=== PATIENT | female | born 1965 | race Caucasian/White ===

== ENCOUNTER 2017-05-24 21:50 | Emergency (ER) | payer OTHER ==
[~2017-05-24] VITALS: Ht 170.2 cm; Wt 114.5 kg
[2017-05-24] MEDS ORDERED: SITA50TAB PO (22:01)
[2017-05-24] MEDS ORDERED: METF10004 PO (22:01)
[2017-05-24] MEDS ORDERED: ROBA500T PO (23:58)
[2017-05-25 00:46] VITALS: BP 146/94
== END 2017-05-25 00:47 | disposition home or self-care (01) ==
LOC: M ED 21:50
DX: M62.830 Muscle spasm of back (principal); E11.9 Type 2 diabetes mellitus without complications; Z87.891 Personal history of nicotine dependence; Z79.84 Long term (current) use of oral hypoglycemic drugs
CPT/HCPCS: 96372; 99282; J3360

== ENCOUNTER 2017-06-16 07:47 | Emergency (ER) | payer OTHER ==
[~2017-06-16] VITALS: Ht 170.2 cm; Wt 107.7 kg
[~2017-06-16 07:47] MED LIST: METF10004 PO; ROBA500T PO; SITA50TAB PO
[2017-06-16] MEDS ORDERED: NS 1,000 ML IV ONE ×2 (08:15→09:15)
[2017-06-16] MEDS ORDERED: MORPHINE 2 MG/ML 1ML SYRINGE IV PRN (08:15)
[2017-06-16] MEDS ORDERED: ONDANSETRON 4MG/2ML VIAL (J2405) IV ONE (08:15)
[2017-06-16] MEDS ORDERED: STOO100C PO (08:37)
[2017-06-16] MEDS ORDERED: ZOFR4TAB3 PO (08:37)
[2017-06-16] MEDS ORDERED: OMEP40CA2 PO (08:37)
[2017-06-16] MEDS ORDERED: OXYC15TA76 PO (08:37)
--- NOTE | 2017-06-16 08:38 | REP ---
Chest one-view HISTORY: Chest pain Comparison: None The lungs are clear. The heart is normal in size. The pulmonary vasculature is normal in appearance. Impression: No acute disease. Signed by Virgil Stanton MD 06/16/2017 08:31 A
[2017-06-16 08:44] LABS: INR 1.02
[2017-06-16 09:03] LABS: ALBUMIN 2.5 GM/DL (3.2-5.2); ALBUMIN/GLOBULIN RATIO 0.48 (1.00-1.93); ALKALINE PHOSPHATASE 78 U/L (45-117); ALT/SGPT 13 U/L (12-78); AMYLASE 7 U/L (25-115); ANION GAP 10 MEQ/L (8-16); AST/SGOT 5 U/L (15-37); BASO # 0.1 K/mm3 (0.0-0.2); BASO % 0.4 % (0.0-1.0); BILIRUBIN,DIRECT 0.3 MG/DL (0.0-0.2); BILIRUBIN,TOTAL 0.9 MG/DL (0.2-1.0); BLOOD UREA NITROGEN 11 MG/DL (7-18); CALCIUM LEVEL 9.5 MG/DL (8.5-10.1); CARBON DIOXIDE LEVEL 26 MEQ/L (21-32); CHLORIDE LEVEL 103 MEQ/L (98-107); CREATININE FOR GFR 0.79 MG/DL (0.55-1.02); EOS # 0.2 K/mm3 (0.0-0.50); EOS % 0.5 % (0.0-3.0); GLOMERULAR FILTRATION RATE > 60.0 (>51); GLUCOSE, FASTING 186 MG/DL (70-105); LARGE UNSTAINED CELL # 0.2 K/mm3 (0.0-0.4); LARGE UNSTAINED CELL % 0.6 % (0.0-4.0); LYMPH # 1.5 K/mm3 (1.5-4.5); LYMPH % 3.8 % (24.0-44.0); MEAN CORPUSCULAR HEMOGLOBIN 30.4 pg (27.0-33.0); MEAN CORPUSCULAR HGB CONC 32.7 g/dl (32.0-36.5); MEAN CORPUSCULAR VOLUME 92.9 fl (80.0-96.0); MONO # 1.7 K/mm3 (0.0-0.8); NEUTROPHILS # 30.7 K/mm3 (1.8-7.7); NEUTROPHILS % 89.7 % (36.0-66.0); PLATELET COUNT, AUTOMATED 383 k/mm3 (150-450); POTASSIUM SERUM 3.4 MEQ/L (3.5-5.1); RED CELL DISTRIBUTION WIDTH 13.4 % (11.5-14.5); SODIUM LEVEL 139 MEQ/L (136-145); TOTAL PROTEIN 7.7 GM/DL (6.4-8.2)
[2017-06-16 09:14] LABS: WHITE BLOOD COUNT 34.2 K/mm3 (4.0-10.0)
[2017-06-16] MEDS ORDERED: PIPERACILLIN/TAZOBACTAM SOD 4.5 GM in D5W MINI-BAG PLUS 50 ML IV ONE (09:15)
[2017-06-16] MEDS ORDERED: ISOVUE-370 76% 100ML VIAL (Q9967) As Ordered ONE (09:17)
--- NOTE | 2017-06-16 10:46 | REP ---
CT ABDOMEN AND PELVIS WITH IV CONTRAST: TECHNIQUE: Axial contrast enhanced images from the lung bases to the pubic symphysis using 100 mL Isovue 370 intravenous contrast material with multiplanar reformations. In the visualized lung bases, there is a small left pleural effusion. There is bibasilar atelectasis/infiltrate left greater than right. Liver demonstrates focal fatty infiltration along the fissure for the ligamentum teres. Gallbladder is grossly unremarkable. Spleen is unremarkable. Adrenal glands demonstrate nodules bilaterally, measuring 3.2 cm on the right and 2.5 cm on the left. Pancreas and kidneys appear unremarkable. There is no adenopathy. The patient has had prior gastric surgery in late May. There is thickening of the anterior abdominal musculature with surrounding streaky inflammatory change in the left upper quadrant. Findings suggest cellulitis in this region. There is underlying mild free intraperitoneal air and diffuse inflammatory change of the mesentery of the left upper quadrant. No abscess collection is seen. No significant free fluid is seen. I see no bowel wall thickening. Multiple surgical sutures are seen in the region of the stomach. No pelvic mass is seen. There are small bilateral inguinal hernias containing fat. IMPRESSION: Small left pleural effusion with bibasilar atelectasis/infiltrate left greater than right. No abscess is seen. However, there is diffuse thickening of the left upper quadrant abdominal wall musculature with surrounding streaky inflammatory change suggesting cellulitis. In addition, there are streaky inflammatory changes in the mesentery of the left upper quadrant with a small amount of free intraperitoneal air. Findings were discussed with Dr. Shore at the time of the exam 9:45 a.m. on 06/16/2017. Bilateral adrenal nodules are present. Recommend followup MRI to further evaluate. Signed by Yrn Florence MD 06/16/2017 05:06 P
[2017-06-16 10:52] VITALS: BP 103/62
--- NOTE | 2017-06-16 19:48 | ECGEPIP ---
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
== END 2017-06-16 10:55 | disposition short-term general hospital (02) ==
LOC: M ED 07:47
DX: R10.9 Unspecified abdominal pain (principal); K66.8 Other specified disorders of peritoneum; D72.829 Elevated white blood cell count, unspecified; R65.10 Systemic inflammatory response syndrome (SIRS) of non-infectious origin without acute organ dysfunction; E11.9 Type 2 diabetes mellitus without complications; F17.200 Nicotine dependence, unspecified, uncomplicated; R00.0 Tachycardia, unspecified; R94.31 Abnormal electrocardiogram [ECG] [EKG]; Z79.899 Other long term (current) drug therapy
CPT/HCPCS: 71010; 74177; 80048; 80076; 82150; 82550; 82553; 83605; 83690; 85025; 85610; 85730; 86850; 86900; 86901; 87040; 93000; 93041; 94760; 96361; 96365; 96375; 99285; J2405; J2543; Q9967

== ENCOUNTER 2017-10-03 09:19 | Emergency (ER) | payer OTHER ==
[~2017-10-03] VITALS: Ht 170.2 cm; Wt 93.6 kg
[~2017-10-03 09:19] MED LIST changes: +OMEP40CA2 PO; +OXYC15TA76 PO; +STOO100C PO; +ZOFR4TAB3 PO
[2017-10-03] MEDS ORDERED: AMOX500C (09:27)
[2017-10-03] MEDS ORDERED: ONDANSETRON 4MG/2ML VIAL (J2405) IV ONE (09:45)
[2017-10-03] MEDS ORDERED: MECLIZINE 25 MG TABLET PO ONE (09:45)
[2017-10-03] MEDS ORDERED: NS 1,000 ML IV ONE (09:45)
[2017-10-03 10:13] LABS: BASO # 0.1 10^3/uL (0.0-0.2); BASO % 0.5 % (0.0-1.0); EOS # 0.1 10^3/uL (0.0-0.50); EOS % 0.5 % (0.0-3.0); IMMATURE GRANULOCYTE % 0.6 % (0-0); LYMPH # 1.5 10^3/uL (1.5-4.5); LYMPH % 9.8 % (24.0-44.0); MEAN CORPUSCULAR HEMOGLOBIN 29.8 pg (27.0-33.0); MEAN CORPUSCULAR HGB CONC 33.8 g/dl (32.0-36.5); MEAN CORPUSCULAR VOLUME 88.4 fl (80.0-96.0); MONO # 0.9 10^3/uL (0.0-0.8); NEUTROPHILS # 12.5 10^3/uL (1.8-7.7); NEUTROPHILS % 82.6 % (36.0-66.0); PLATELET COUNT, AUTOMATED 269 10^3/uL (150-450); RED CELL DISTRIBUTION WIDTH 13.2 % (11.5-14.5); WHITE BLOOD COUNT 15.1 10^3/uL (4.0-10.0)
[2017-10-03 10:33] LABS: ANION GAP 8 MEQ/L (8-16); BLOOD UREA NITROGEN 6 MG/DL (7-18); CALCIUM LEVEL 9.1 MG/DL (8.5-10.1); CARBON DIOXIDE LEVEL 24 MEQ/L (21-32); CHLORIDE LEVEL 105 MEQ/L (98-107); CREATININE FOR GFR 0.61 MG/DL (0.55-1.02); GLOMERULAR FILTRATION RATE > 60.0 (>51); GLUCOSE, FASTING 170 MG/DL (70-105); SODIUM LEVEL 137 MEQ/L (136-145)
--- NOTE | 2017-10-03 12:10 | REP ---
Clinical: Left axillary pain and swelling with erythema. Technique: Real time patel scale and color evaluation using curved array transducer. Findings: Directed ultrasound examination of the left axillary region demonstrates a 5.1 x 3.6 x 3.6 cm complex fluid collection compatible with hematoma versus abscess versus seroma. Correlation with history is recommended. Impression: Complex collection in the axilla compatible with abscess versus hematoma and less likely seroma. Signed by Edson Denson MD 10/03/2017 12:01 P
[2017-10-03] MEDS ORDERED: LIDOCAINE 1% MDV 20ML VIAL SC ONE (12:15)
[2017-10-03] MEDS ORDERED: MECL-68 PO (13:03)
[2017-10-03] MEDS ORDERED: ZOFR4TAB3 PO (13:03)
[2017-10-03] MEDS ORDERED: BACT800T5 PO (13:03)
[2017-10-03 13:15] VITALS: BP 120/70
== END 2017-10-03 13:24 | disposition home or self-care (01) ==
LOC: M ED 09:19
DX: H81.10 Benign paroxysmal vertigo, unspecified ear (principal); L02.412 Cutaneous abscess of left axilla; Z72.0 Tobacco use
CPT/HCPCS: 10060; 36415; 76882; 80048; 85025; 87070; 87076; 87205; 96374; 99284; J2405

== ENCOUNTER 2019-05-01 14:08 | Emergency (ER) | payer OTHER ==
[~2019-05-01] VITALS: Ht 170.2 cm; Wt 109.7 kg
[~2019-05-01 14:08] MED LIST changes: +AMOX500C; +BACT800T5 PO; +MECL1TAB31 PO; +MM S100C PO; -OMEP40CA2 PO; +OMEP40CA97 PO; -STOO100C PO; +ZOFR4TAB14 PO; -ZOFR4TAB3 PO
[2019-05-01 14:50] LABS: BASO # 0.1 10^3/uL (0.0-0.2); BASO % 0.9 % (0.0-1.0); EOS # 0.2 10^3/uL (0.0-0.50); EOS % 1.9 % (0.0-3.0); HEMATOCRIT 47.3 % (36.0-47.0); HEMOGLOBIN 15.4 g/dl (12.0-15.5); LYMPH % 21.8 % (24.0-44.0); MEAN CORPUSCULAR HEMOGLOBIN 31.4 pg (27.0-33.0); MEAN CORPUSCULAR HGB CONC 32.6 g/dl (32.0-36.5); MEAN CORPUSCULAR VOLUME 96.3 fl (80.0-96.0); MONO # 0.6 10^3/uL (0.0-0.8); MONO % 6.6 % (0.0-5.0); NEUTROPHILS # 6.3 10^3/uL (1.8-7.7); NEUTROPHILS % 68.3 % (36.0-66.0); PLATELET COUNT, AUTOMATED 216 10^3/uL (150-450); RED BLOOD COUNT 4.91 10^6/uL (4.00-5.40); WHITE BLOOD COUNT 9.3 10^3/uL (4.0-10.0)
[2019-05-01 15:05] LABS: INR 0.89; PROTHROMBIN TIME 11.7 SECONDS (11.8-14.0)
[2019-05-01 15:06] LABS: PARTIAL THROMBOPLASTIN TIME 25.5 SECONDS (25.0-38.4)
[2019-05-01] MEDS: NITROGLYCERIN 0.4 MG SUBL TABLET SL PRN ×3 (15:07→15:30)
[2019-05-01] MEDS ORDERED: HEPARIN DRIP 25,000 UNITS in IV 1 EA IV SCH (15:08)
[2019-05-01] MEDS ORDERED: CLOPIDOGREL 300 MG TAB (PLAVIX) PO ONE (15:15)
[2019-05-01] MEDS ORDERED: HEPARIN SOD (PORCINE) 5000 UNITS/ML VIAL IV ONE (15:15)
[2019-05-01 15:20] LABS: ALBUMIN 3.5 GM/DL (3.2-5.2); ALT/SGPT 17 U/L (12-78); BILIRUBIN,DIRECT 0.1 MG/DL (0.0-0.2); BILIRUBIN,TOTAL 0.4 MG/DL (0.2-1.0); BLOOD UREA NITROGEN 9 MG/DL (7-18); CALCIUM LEVEL 8.8 MG/DL (8.5-10.1); CARBON DIOXIDE LEVEL 23 MEQ/L (21-32); CHLORIDE LEVEL 110 MEQ/L (98-107); CK-MB VALUE MASS 3.1 NG/ML (<3.6); CPK CREATINE PHOSPHOKINASE 108 U/L (26-192); FREE T4 0.98 NG/DL (0.76-1.46); GLOMERULAR FILTRATION RATE > 60.0 (>51); GLUCOSE, FASTING 121 MG/DL (70-100); LIPASE 113 U/L (73-393); MB/CK RELATIVE INDEX 2.87 (< OR =4); POTASSIUM SERUM 4.2 MEQ/L (3.5-5.1); SODIUM LEVEL 141 MEQ/L (136-145); TOTAL PROTEIN 7.2 GM/DL (6.4-8.2)
[2019-05-01 15:30] VITALS: BP 124/60
--- NOTE | 2019-05-01 15:35 | REP ---
Clinical: Acute chest pain . Comparison: 06/16/2017 Findings: The mediastinum and cardiac silhouette are stable and within normal limits for portable technique. The lung brown are clear without acute consolidation, effusion, or pneumothorax. Skeletal structures are intact. Impression: No acute cardiopulmonary process appreciated. Electronically Signed by Edson Denson MD 05/01/2019 03:26 P
[2019-05-01 15:42] VITALS: BP 118/65
--- NOTE | 2019-05-01 21:44 | ECGEPIP ---
[facility] - ED Test Date: 2019-05-01 Pat Name: TYLER PRITCHETT Department: Room: - Gender: Female Park Superintendent: BURT : 1965 Requested By: ROSINA Rizvi Order Number: [id number] Reading MD: Patricia Griffin Measurements Intervals [place] Rate: 87 P: 48 WI: 164 QRS: 76 QRSD: 132 T: QT: 381 QTc: 460 Interpretive Statements SINUS RHYTHM WITH OCCASIONAL VENTRICULAR PREMATURE COMPLEXES INTRAVENTRICULAR CONDUCTION DELAY Anteroseptal infarct acute, CLINICAL CORRELATION Electronically Signed on 05-01-2019 21:44:21 EDT by Patricia Griffin
[2019-06-27] MEDS ORDERED: RAMI1CAP22 PO (12:50)
[2019-06-27] MEDS ORDERED: POTA1TAB14 PO (12:50)
[2019-06-27] MEDS ORDERED: METO25TA4 PO (12:50)
[2019-06-27] MEDS ORDERED: ASPI81CH33 PO (12:50)
[2019-06-27] MEDS ORDERED: ATOR40TA75 PO (12:50)
[2019-06-27] MEDS ORDERED: NICO21DI6 TD (12:50)
[2019-06-27] MEDS ORDERED: FURO40TA2 PO (12:50)
[2019-06-27] MEDS ORDERED: JANT5TAB PO (12:50)
[2019-06-27] MEDS ORDERED: JANT4TAB PO (12:50)
== END 2019-05-01 16:01 | disposition home or self-care (01) ==
LOC: M ED 14:08
DX: I24.9 Acute ischemic heart disease, unspecified (principal); R94.31 Abnormal electrocardiogram [ECG] [EKG]; F17.210 Nicotine dependence, cigarettes, uncomplicated; Z82.49 Family history of ischemic heart disease and other diseases of the circulatory system; Z98.84 Bariatric surgery status

== ENCOUNTER 2019-07-03 11:20 | Outpatient (RCR) | payer OTHER ==
--- NOTE | 2019-06-27 15:08 | CARECAPL ---
Assessment Account #s: Initial Assessment General Diagnoses: CABG, NSTEMI Date of event: May 07, 2019 Physician: Shelbi Rincon MD Allergies: Coded Allergies: No Known Allergies (Unverified , 10/03/17) Date Entered Program: Jun 27, 2019 Risk strat for cardiac event: Moderate Exercise Date: Jun 27, 2019 Assessment: Initial Assessment Exercise Prescription Plan TO EDUCATE AND BUILD ENDURANCE THROUGH MONITORED EXERCISE Modalities initiated: Treadmill (WILL ADD), Cardio-Strider (WILL ADD), Nustep (WILL ADD), Arm Aerometer (WILL ADD), Dumbells (WILL ADD), Recumbent Bike (WILL ADD) Frequency: 3 Duration (Minutes) 30-60 minutes total exercise a day. 12-15 work intervals in minutes. 5 MIN NEEDED rest intervals in minutes. Functional Capacity Goal Sustained Metabolic Equivalent of a task (MET) goal of 2.0-3.0 for 15-20 minutes. Intensity: 3-Moderate Progression (METS) Increase by: 0.5 METS every: 5 sessions Angina with ex: No Target Heart Rate REST +35-40 Resistance Training: Yes Weight (pounds): 2 Reps: 12-15 Hypertension: Yes Hypertension controlled with: Medication Resting 169/86 Medications Scheduled Aspirin (Aspirin), 81 MG PO DAILY, (Reported) Atorvastatin Calcium (Atorvastatin Calcium), 40 MG PO DAILY, (Reported) Furosemide (Furosemide), 40 MG PO DAILY, (Reported) Metoprolol Tartrate (Metoprolol Tartrate), 25 MG PO BID, (Reported) Nicotine (Nicoderm Cq), 21 MG TD DAILY, (Reported) Potassium Chloride (Potassium Chloride), 20 MEQ PO DAILY, (Reported) Ramipril (Ramipril), 2.5 MG PO DAILY, (Reported) Warfarin Sodium (Jantoven), 5 MG PO DAILY, (Reported) Warfarin Sodium (Jantoven), 6 MG PO DAILY, (Reported) Current BP 154/83 Med Change: No Intervention Education: Self pulse (DEMONSTRATED TAKING SELF PULSE), S/S to report (DISCUSSED IMPORTANCE OF REPORTING CHEST PAIN/SOB), BP medication (REVIEWED B/P MEDICATIONS METOPROLOL AND RAMIPRIL), RPE Scale (REVIEWED RPE SCALE WITH PATIENT), warm up/cool down (INSTRUCTED PATIENT ON WARM UP/COOL DOWN PRIOR TO AND FOLLOWING EXERCISE), Understand BP (DISCUSSED B/P PARAMETERS WITH PATIENT <140/90) Target Goals Individual exercise Rx (1) BP 140/90 or 130/80 if DM or CKD (1) Aerobic active 30+min 5 days per week (1) Nutrition Date: Jun 27, 2019 Assessment: Initial Assessment Lipid- med/supplement ATORVASTATIN 40 MG DAILY Med Change: No Diabetes Diabetes: Yes (HX OF PRIOR TO GASTRIC SLEEVE) Monitor Blood Sugar at home: No Medication Change: No Blood sugar in range: No Weight Management Weight (lbs): 223.6 Height (inches): 67 Waist Circumference (Inches): 51 BMI: 32 Weight goal: 200 Special Diet: low salt Alcohol: special Diet Access Tool: Rate your plate Score: 39 Current Weight (pounds): 223.6 Weight Goal 200 Intervention Spikemaking Supervisor Consult: No Nurse/patient discussion: Yes Dietary Goals TO EAT HEART HEALTHY DIET AND SMALLER PORTIONS Diet Class: Yes (WILL MEET WITH AIR ANTISUBMARINE OFFICER WHILE IN CARDIAC REHAB) Referral to Diabetes education: No Referral to lipid clinic: No Referral to weight mangement p: No Education Eating Healthy Target goal LDL-C<100 if triglycerides are >200 Non-HDL-C should be <130 (1) LDL-C<70 for high risk patients (4) HbA1c<7% (1) BMI<25 Waist cir<40in M/<35in F (1) Education Date: Jun 27, 2019 Assessment: Initial Assessment Learning Barriers: ready Knowledge Test Score: 9 Family Support: Yes Tobacco use: Yes Tobacco Use Cigarettes smoked per day: 10 (HAS NICOTINE PATCH ORDERED) Smokeless tobacco: No Intervention Referral to smoking cessation: No Individual education and couns: Yes Tobacco Adjunct: No Education class schedule given: No Attended education classes: No Education: tobacco triggers, CAD, Risk factors (DISCUSSED RISK FACTORS OF SMOKING), med compliance, cardiac A&P, Angina S/S, Sexuality Target Goals Complete cessation of tobacco use (1). Psychosocial Date: Jun 27, 2019 Assessment: Initial Assessment Psych Test (Initial/Discharge) Tool Used: Other (DEPRESSION SCREENING TOOL) Score: 11 (DEPRESSION SCALE FAXED TO HER PMD, DR. CRUZ) Intervention Physician Consult: No Physician Referral: No Med Change: No Stress Management Class: No Uses Stress Management Skills: Yes Education Education: Coping Techniques, S/S depression, Relaxation Techniques Target Goal Assess presence or absence of depression using a valid screening tool (1). Maximize coping skills (2). Positive support system (2). Patient/Program Goal Preventative Medication: Yes Aspirin, Yes Beta blockade, Yes Statin/OTR lipid Lowering Fall Risk Assess: Yes (NOT A FALL RISK) Provider Assessment Session Number: 1 Provider Assessment: Proceed with rehab Wayne Trejo RN Jun 27, 2019 15:08
[~2019-07-03 11:20] MED LIST changes: +ASPI81CH33 PO; +ATOR40TA75 PO; +FURO40TA2 PO; +JANT4TAB PO; +JANT5TAB PO; +MECL-68 PO; -MECL1TAB31 PO; +METO25TA4 PO; +NICO21DI6 TD; +OMEP40CA2 PO; -OMEP40CA97 PO; +POTA1TAB14 PO; +RAMI1CAP22 PO
== END 2019-07-06 ==
LOC: M CR 11:20
PROVIDERS: ATTEND Internal Medicine Cardiovascular Disease
DX: Z95.1 Presence of aortocoronary bypass graft (principal)

== ENCOUNTER → 2019-08-05 | Outpatient (RCR) | payer OTHER ==
--- NOTE | 2019-07-22 17:55 | CARECAPL ---
Assessment Account #s: Re-Assessment I General Diagnoses: CABG, NSTEMI Date of event: May 07, 2019 Physician: Shelbi Rincon MD Allergies: Coded Allergies: No Known Allergies (Unverified , 10/03/17) Date Entered Program: Jun 27, 2019 Risk strat for cardiac event: Moderate Exercise Assessment: Re-Assessment I Stages of change: Contemplate Exercise Prescription Plan TO EDUCATE AND BUILD ENDURANCE THROUGH MONITORED EXERCISE Modalities initiated: Treadmill (METS=2.15.RPE=3), Nustep (METS=3.3/RPE=3), Arm Aerometer (METS=4.5/RPE=3), Dumbells (3#/RPE=2), Recumbent Bike (METS=3/RPE=4) Frequency: 3 Duration (Minutes) 30 - 60 minutes total exercise a day. 15 - 20 work intervals in minutes. PRN rest intervals in minutes. Functional Capacity Goal Sustained Metabolic Equivalent of a task (MET) goal of 3.25-4.25 for 15-20 minutes. Intensity: 3-Moderate Progression (METS) Increase by: 0.5 METS every: 5 sessions TOLERATED Angina with ex: No Target Heart Rate REST +35-40 Resistance Training: Yes Weight (pounds): 3 Reps: 8-12 Hypertension: Yes Hypertension controlled with: Medication Resting 132/70 Peak Exercise BP 150/84 Medications Scheduled Aspirin (Aspirin), 81 MG PO DAILY, (Reported) Atorvastatin Calcium (Atorvastatin Calcium), 40 MG PO DAILY, (Reported) Furosemide (Furosemide), 40 MG PO DAILY, (Reported) Metoprolol Tartrate (Metoprolol Tartrate), 25 MG PO BID, (Reported) Nicotine (Nicoderm Cq), 21 MG TD DAILY, (Reported) Potassium Chloride (Potassium Chloride), 20 MEQ PO DAILY, (Reported) Ramipril (Ramipril), 2.5 MG PO DAILY, (Reported) Warfarin Sodium (Jantoven), 5 MG PO DAILY, (Reported) Warfarin Sodium (Jantoven), 6 MG PO DAILY, (Reported) Current BP 112/76 Med Change: No Intervention Resistance Training: Yes Education: Self pulse (DEMONSTRATED SELF PULSE), Ex safety (REVIEWED IMPORTANCE OF REPORTING CHEST PAIN/SOB), S/S to report (STATES UNDERSTANDING OF REPORTING CHEST PAIN/SOB), Low NA diet (DISCUSSED NOT ADDING SALT TO DIET), BP medication (REVIEWED ACTION OF RAMAPRIL,METOPROLOL), RPE Scale (VERBALIZES UNDERSTANDING OF DIFFICULTY SCALE), Equipment orientation (ORIENTED TO EACH PIECE OF EQUIPMENT USED), warm up/cool down (VERBALIZES UNDERSTANDING OF WARM UP/COOL DOWN PRIOR TO AND FOLLOWING EXERCISE), Physical Active (DISCUSSED IMPORTANCE OF CONTINUED EXERCISE FOLLOWING CARDIAC REHAB PROGRAM) Education Goals Met: Yes (PROGRESSING TOWARD GOALS) Target Goals Individual exercise Rx (1) BP 140/90 or 130/80 if DM or CKD (1) Aerobic active 30+min 5 days per week (1) Nutrition Date: Jul 22, 2019 Assessment: Re-Assessment I Stages of change: Contemplate Lipid- med/supplement ATORVASTATIN Med Change: No Diabetes Diabetes: No Monitor Blood Sugar at home: No Medication Change: No Weight Management Weight (lbs): 236.4 Weight goal: 200 Special Diet: low salt Current Weight (pounds): 236.4 Weight Goal 200 Intervention Sap Payroll Consultant Consult: No Nurse/patient discussion: Yes Dietary Goals TO EAT HEART HEALTHY CHOICES AND SMALLER PORTIONS Diet Class: Yes (WILL SEE THORACIC SURGEON WHILE IN PROGRAM) Education Eating Healthy Education Goals Met: Yes (PROGRESSING TOWARD GOALS) Target goal LDL-C<100 if triglycerides are >200 Non-HDL-C should be <130 (1) LDL-C<70 for high risk patients (4) HbA1c<7% (1) BMI<25 Waist cir<40in M/<35in F (1) Education Date: Jul 22, 2019 Assessment: Re-Assessment I Learning Barriers: ready Stages of change: Contemplate Family Support: Yes Tobacco use: Yes (10 CIGARETTES PER DAY) Tobacco Use Smokeless tobacco: No Intervention Individual education and couns: Yes Tobacco Adjunct: No Education class schedule given: No Attended education classes: No Education: tobacco triggers, CAD, Risk factors (REVIEWED RISK FACTORS SUCH LUNG CANCER,EMPHYSEMA), med compliance, cardiac A&P, Angina S/S, Sexuality Education Goals Met: Yes (PROGRESSING TOWARD GOALS) Target Goals Complete cessation of tobacco use (1). Psychosocial Date: Jul 22, 2019 Assessment: Re-Assessment I Stages of change: Contemplate Intervention Physician Consult: No Physician Referral: No Med Change: No Stress Management Class: No Uses Stress Management Skills: Yes Education Education: Coping Techniques, S/S depression, Relaxation Techniques Education Goals Met: Yes (PROGRESSING TOWARD GOALS) Target Goal Assess presence or absence of depression using a valid screening tool (1). Maximize coping skills (2). Positive support system (2). Patient/Program Goal Preventative Medication: Yes Aspirin, Yes Beta blockade, Yes Statin/OTR lipid Lowering Fall Risk Assess: Yes (NOT A FALL RISK) Provider Assessment Session Number: 2 Provider Assessment: Proceed with rehab Wayne Trejo RN Jul 22, 2019 17:55
== END ==
LOC: M CR 07-17 14:16
PROVIDERS: ATTEND Internal Medicine Cardiovascular Disease
DX: Z95.1 Presence of aortocoronary bypass graft (principal)

== ENCOUNTER 2019-08-16 10:27 | Outpatient (RCR) | payer OTHER, SELFPAY ==
[~2019-08-16 10:27] MED LIST changes: -OMEP40CA2 PO; +OMEP40CA97 PO
--- NOTE | 2019-08-19 10:46 | CARECAPL ---
Assessment Account #s: Re-Assessment I General Diagnoses: CABG, NSTEMI Date of event: May 07, 2019 Physician: Shelbi Rincon MD Allergies: Coded Allergies: No Known Allergies (Unverified , 10/03/17) Date Entered Program: Jun 27, 2019 Risk strat for cardiac event: Moderate Exercise Date: Aug 16, 2019 Assessment: Re-Assessment II Stages of change: Pre-contemplation Exercise Prescription Plan educate on cardiovascular disease and increase endurance, strength and flexibility through monitored exercise program. Modalities initiated: Treadmill (speed 1.5 incline 1.0 Mets 2.35 RPE 3), Nustep (Resistance of 4 for 10 minutes Mets 2.4 RPE 3), Arm Aerometer (resistance of 2 for 10 minutes Mets 1.7 RPE 3), Dumbells (4lbs 1 set of 10 reps RPE 3), Recumbent Bike (Resistance 2 for 10 minutes Mets 2.6 RPE 4.5) Frequency: 1-2 Duration (Minutes) 30 - 60 minutes total exercise a day. 15 - 20 work intervals in minutes. PRN rest intervals in minutes. Functional Capacity Goal Sustained Metabolic Equivalent of a task (MET) goal of 3.25-4.25 for 15-20 minutes. Intensity: 3-Moderate Progression (METS) Increase by: 0.5 METS every: 3-5 sessions Angina with ex: No Target Heart Rate Rest + 35-40 per beta yola therapy. Resistance Training: Yes Weight (pounds): 4 Reps: 8-12 Medications Scheduled Aspirin (Aspirin), 81 MG PO DAILY, (Reported) Atorvastatin Calcium (Atorvastatin Calcium), 40 MG PO DAILY, (Reported) Furosemide (Furosemide), 40 MG PO DAILY, (Reported) Metoprolol Tartrate (Metoprolol Tartrate), 25 MG PO BID, (Reported) Nicotine (Nicoderm Cq), 21 MG TD DAILY, (Reported) Potassium Chloride (Potassium Chloride), 20 MEQ PO DAILY, (Reported) Ramipril (Ramipril), 2.5 MG PO DAILY, (Reported) Warfarin Sodium (Jantoven), 5 MG PO DAILY, (Reported) Warfarin Sodium (Jantoven), 6 MG PO DAILY, (Reported) Current BP 130/80 Med Change: No Education Goals Met: No (will continue to education. See prior ITP's for education.) Target Goals Individual exercise Rx (1) BP 140/90 or 130/80 if DM or CKD (1) Aerobic active 30+min 5 days per week (1) Nutrition Date: Aug 19, 2019 Assessment: Re-Assessment II Stages of change: Pre-contemplation Med Change: No Diabetes Diabetes: No Monitor Blood Sugar at home: No Medication Change: No Blood sugar in range: No Current Weight (pounds): 240 Weight Goal 175 Intervention Associate Material Handler Consult: No Nurse/patient discussion: No Diet Class: No Education Goals Met: No (will continue to educate throughout the program. See education documented on previous ITP.) Target goal LDL-C<100 if triglycerides are >200 Non-HDL-C should be <130 (1) LDL-C<70 for high risk patients (4) HbA1c<7% (1) BMI<25 Waist cir<40in M/<35in F (1) Education Date: Aug 19, 2019 Assessment: Re-Assessment II Stages of change: Pre-contemplation Education Goals Met: No (will continue to education while in the program. SEE Documentation of education on previous ITP's.) Target Goals Complete cessation of tobacco use (1). Psychosocial Date: Aug 19, 2019 Assessment: Re-Assessment II Med Change: No Education Goals Met: No (will continue to educate throughout program. ) Target Goal Assess presence or absence of depression using a valid screening tool (1). Maximize coping skills (2). Positive support system (2). Patient/Program Goal Preventative Medication: Yes Aspirin, Yes Beta blockade, Yes GABRIEL Inhibitor, Yes Statin/OTR lipid Lowering Fall Risk Assess: Yes (negative for fall risk) Provider Assessment Session Number: 5 Provider Assessment: Proceed with rehab (attendance is an issue with this patient. she in not progressing in program d/t her poor attendence. ) Acacia Campuzano RN Aug 19, 2019 10:46
--- NOTE | 2019-08-30 10:45 | CARECAPL ---
Assessment Account #s: Discharge General Diagnoses: CABG Date of event: May 07, 2019 Physician: Shelbi Rincon MD Allergies: Coded Allergies: No Known Allergies (Unverified , 10/03/17) Date Entered Program: Jun 27, 2019 Risk strat for cardiac event: Moderate Exercise Date: Aug 16, 2019 Assessment: Followup/Discharge Stages of change: relapse Exercise Prescription Plan educate on cardiovascular disease and increase endurance, strength and flexibility through a monitored exercise program. Duration (Minutes) 30 - 60 minutes total exercise a day. 15 - 20 work intervals in minutes. PRN rest intervals in minutes. Functional Capacity Goal Sustained Metabolic Equivalent of a task (MET) goal of for minutes. Progression (METS) Increase by: METS every: sessions Medications Scheduled Aspirin (Aspirin), 81 MG PO DAILY, (Reported) Atorvastatin Calcium (Atorvastatin Calcium), 40 MG PO DAILY, (Reported) Furosemide (Furosemide), 40 MG PO DAILY, (Reported) Metoprolol Tartrate (Metoprolol Tartrate), 25 MG PO BID, (Reported) Nicotine (Nicoderm Cq), 21 MG TD DAILY, (Reported) Potassium Chloride (Potassium Chloride), 20 MEQ PO DAILY, (Reported) Ramipril (Ramipril), 2.5 MG PO DAILY, (Reported) Warfarin Sodium (Jantoven), 5 MG PO DAILY, (Reported) Warfarin Sodium (Jantoven), 6 MG PO DAILY, (Reported) Education Goals Met: No (discharged d/t poor attendance.) Target Goals Individual exercise Rx (1) BP 140/90 or 130/80 if DM or CKD (1) Aerobic active 30+min 5 days per week (1) Nutrition Date: Aug 30, 2019 Education Goals Met: No (discharged d/t poor attendance. ) Target goal LDL-C<100 if triglycerides are >200 Non-HDL-C should be <130 (1) LDL-C<70 for high risk patients (4) HbA1c<7% (1) BMI<25 Waist cir<40in M/<35in F (1) Education Date: Aug 30, 2019 Assessment: Followup/Discharge Education Goals Met: No (discharged d/t poor attendance. ) Target Goals Complete cessation of tobacco use (1). Psychosocial Date: Aug 30, 2019 Education Goals Met: No (discharged d/t poor attendance. ) Target Goal Assess presence or absence of depression using a valid screening tool (1). Maximize coping skills (2). Positive support system (2). Provider Assessment Session Number: 5 Provider Assessment: Proceed with rehab (Patient attended 5 session since admission. Discharged d/t poor attendance. Attended maybe twice a month since starting program. ) Acacia Campuzano RN Aug 30, 2019 10:45
== END 2019-09-05 ==
LOC: M CR 10:27
PROVIDERS: ATTEND Internal Medicine Cardiovascular Disease
DX: Z95.1 Presence of aortocoronary bypass graft (principal)

== ENCOUNTER → 2021-01-13 | Outpatient (CLI) | payer OTHER ==
[~2021-01-13] MED LIST changes: -MECL-68 PO; +MECL1TAB31 PO; +OXYC-1 PO; -OXYC15TA76 PO
--- NOTE | 2021-01-13 10:01 | REP ---
INDICATION: CELLULITIS AND PAIN COMPARISON: None. TECHNIQUE: AP, lateral, bilateral oblique views right foot. FINDINGS: Osseous structures demonstrate generalized age-related changes. No acute or obvious healed injury. No periosteal reaction. Surrounding soft tissues are grossly normal and without subcutaneous emphysema or foreign body. Lateral view demonstrates small calcaneal heel spur. IMPRESSION: Relatively normal radiographic evaluation of the right foot. <Electronically signed by Edson Denson > 01/13/21 0919
== END ==
LOC: M WUC 09:17
PROVIDERS: ATTEND Physician Assistant
DX: L03.115 Cellulitis of right lower limb (principal); M79.671 Pain in right foot

== ENCOUNTER → 2021-05-26 | Outpatient (CLI) | payer OTHER ==
[~2021-05-26] MED LIST changes: +OMEP40CA4 PO; -OMEP40CA97 PO
[2021-05-26 11:45] LABS: HEMOGLOBIN A1c 6.9 %
== END ==
LOC: M PLALAB 08:01
PROVIDERS: ATTEND Student in an Organized Health Care Education/Training Program
DX: E11.65 Type 2 diabetes mellitus with hyperglycemia (principal)

== ENCOUNTER → 2021-07-16 | Outpatient (CLI) | payer OTHER ==
--- NOTE | 2021-07-16 11:22 | REPMRS ---
Patient History The patient states she has not had a clinical breast exam in over a year. Patient is postmenopausal. No known family history of cancer. Took hormonal contraceptives for 10 years. moderna vaccine 03/09/21 right arm 04/06/21 right arm. Patient states no breast complaints today. Patient has signed MRS History Sheet. Digital Woman Screen Mammo: July 16, 2021 - Exam #: [id number] Bilateral CC and MLO view(s) were taken. Technologist: RT Ghazala Prior study comparison: January 27, 2011, bilateral digital mammo screening bilat performed at [facility]. FINDINGS: There are scattered fibroglandular densities. Screening. Digital screening (2D) mammography was performed bilaterally in the CC and MLO projections. Additionally, breast tomosynthesis (3D mammography) was performed bilaterally in the CC and MLO projections. Todays exam was compared to the prior exam/exams. By history, the patient has no complaints of a palpable breast abnormality or other significant breast complaints. The breasts are unchanged in size and shape. There are no dario-soft tissue densities or spiculated masses. There is no internal architectural distortion. There are no suspicious dario-calcific clusters. Skin thickening or nipple retraction is not present. IMPRESSION: BI-RADS Category 2- Benign Findings. There is no evidence of malignant alteration of the breasts. Followup examination recommended in one year. The Volpara volumetric breast density category is B, there are scattered areas of fibroglandular densities. This mammogram was read with the assistance of [facility],an FDA approved computer aided detection system for mammography. The lifetime Tyrer-Cuzick score is 8.6 % Negative x-ray reports should not delay surgical consultation if a dominant or clinically suspicious mass is present. Not all breast cancers can be identified by mammography. Therefore, we recommend that you continue to perform regular breast self-examination and physical examination and then promptly contact your physician of any concerns or changes. Adenosis and dense breasts may obscure an underlying neoplasm. Assessment: BI-RADS/ACR category 2 mammogram. Benign Findings. Recommendation Routine screening mammogram of both breasts in 1 year. Electronically Signed By: Nelson Jang DO 07/16/21 1123
== END ==
LOC: M WHC 10:09
PROVIDERS: ATTEND Student in an Organized Health Care Education/Training Program
DX: Z12.31 Encounter for screening mammogram for malignant neoplasm of breast (principal)

== ENCOUNTER → 2021-07-24 | Outpatient (REF) | payer OTHER | LOC: M LAB REF 18:31 | PROVIDERS: ATTEND Physician Assistant | DX: L02.412 Cutaneous abscess of left axilla (principal) ==

== ENCOUNTER → 2021-09-29 | Outpatient (CLI) | payer OTHER | LOC: M RAD 07:10 | PROVIDERS: ATTEND Student in an Organized Health Care Education/Training Program | DX: Z12.2 Encounter for screening for malignant neoplasm of respiratory organs (principal) ==

== ENCOUNTER → 2022-05-06 | Outpatient (CLI) | payer OTHER ==
[2022-05-06 13:39] LABS: HEMOGLOBIN A1c 6.2 %
[2022-05-06 14:05] LABS: FREE T4 1.02 NG/DL (0.76-1.46); THYROID STIMULATING HORMONE 1.51 uIU/ML (0.358-3.740)
== END ==
LOC: M PLALAB 09:43
PROVIDERS: ATTEND Student in an Organized Health Care Education/Training Program
DX: E11.65 Type 2 diabetes mellitus with hyperglycemia (principal)

== ENCOUNTER → 2022-11-04 | Outpatient (CLI) | payer OTHER ==
[2022-11-04 14:10] LABS: CHOLESTEROL RISK RATIO 2.71 (<5); LDL CHOLESTEROL 30.8 MG/DL (<100)
== END ==
LOC: M PLALAB 10:57
PROVIDERS: ATTEND Student in an Organized Health Care Education/Training Program
DX: E11.65 Type 2 diabetes mellitus with hyperglycemia (principal)

== ENCOUNTER → 2023-01-30 | Outpatient (CLI) | payer OTHER | LOC: M RAD 09:29 | PROVIDERS: ATTEND Student in an Organized Health Care Education/Training Program | DX: R91.8 Other nonspecific abnormal finding of lung field (principal) ==